=== PATIENT | male | born 1980 | race Caucasian/White ===

== ENCOUNTER 2018-07-22 09:39 | Emergency (ER) | payer SELFPAY ==
[~2018-07-22] VITALS: Ht 177.8 cm; Wt 93.0 kg
--- NOTE | 2018-07-22 09:58 | PHYS DOC ---
Past Medical History Additional Past Medical Histor: chronic back pain Drug Use: None Adult General Chief Complaint Chief Complaint: SORE THROAT HPI HPI Patient is a 38 year old male who presents with left lower neck pain that is worse with swallowing. This started approximately 48 hours ago. It has been getting worse over time. 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 Patient denies any difficulty breathing. Increased pain with swallowing. Improved pain with not swallowing.[] Review of Systems Review of Systems Constitutional: Denies fever or chills [] Eyes: Denies change in visual acuity, redness, or eye pain [] HENT: Denies nasal congestion see history of present illness[] Respiratory: Denies cough or shortness of breath [] Cardiovascular: No additional information not addressed in HPI [] GI: Denies abdominal pain, nausea, vomiting, bloody stools or diarrhea [] : Denies dysuria or hematuria [] Musculoskeletal: Denies back pain or joint pain [] Integument: Denies rash or skin lesions [] Neurologic: Denies headache, focal weakness or sensory changes [] Endocrine: Denies polyuria or polydipsia [] All other systems were reviewed and found to be within normal limits, except as documented in this note. Current Medications Current Medications Current Medications Medications (Trade) Dose Ordered Sig/Shane Start Time Stop Time Status Last Admin Dose Admin Diphenhydramine HCl (Benadryl) 50 mg 1X ONCE 07/22/18 10:15 07/22/18 10:16 DC 07/22/18 10:35 50 MG Info (CONTRAST GIVEN -- Rx MONITORING) 1 each PRN DAILY PRN 07/22/18 10:30 07/24/18 10:29 Iohexol (Omnipaque 300 Mg/ml) 70 ml 1X ONCE 07/22/18 10:30 07/22/18 10:31 DC 07/22/18 10:41 70 ML Methylprednisolone Sodium Succinate (SOLU-Medrol 125MG VIAL) 125 mg 1X ONCE 07/22/18 10:15 07/22/18 10:16 DC 07/22/18 10:34 125 MG Allergies Allergies Allergies Coded Allergies Type Severity Reaction Last Updated Verified Iodinated Contrast- Oral and IV Dye Allergy Mild itching on tongue and eyes 07/22/18 Yes Penicillins Allergy Unknown 07/22/18 Yes Physical Exam Physical Exam Constitutional: Well developed, well nourished, no acute distress, non-toxic appearance. [] HENT: Normocephalic, atraumatic, bilateral external ears normal, oropharynx moist, no oral exudates, uvula is midline, nose normal. [] Eyes: PERRLA, EOMI, conjunctiva normal, no discharge. [] Neck: Normal range of motion, tenderness in the left neck, no cervical lymphadenopathy, supple, no stridor. [] Cardiovascular:Heart rate regular rhythm, no murmur [] Lungs & Thorax: Bilateral breath sounds clear to auscultation [] Abdomen: Bowel sounds normal, soft, no tenderness, no masses, no pulsatile masses. No hepato-or splenomegaly[] Skin: Warm, dry, no erythema, no rash. [] Back: No tenderness, no CVA tenderness. [] Extremities: No tenderness, no cyanosis, no clubbing, ROM intact, no edema. [] Neurologic: Alert and oriented X 3, normal motor function, normal sensory function, no focal deficits noted. [] Psychologic: Affect normal, judgement normal, mood normal. [] Current Patient Data Vital Signs Vital Signs Date Time Temp Pulse Resp B/P (MAP) Pulse Ox O2 Delivery O2 Flow Rate FiO2 07/22/18 09:50 98.3 74 16 161/93 (115) 98 Room Air 98.3 Lab Values Laboratory Tests Test 07/22/18 10:20 White Blood Count 6.2 x10^3/uL (4.0-11.0) Red Blood Count 4.51 x10^6/uL (4.30-5.70) Hemoglobin 13.9 g/dL (13.0-17.5) Hematocrit 41.6 % (39.0-53.0) Mean Corpuscular Volume 92 fL (79-100) Mean Corpuscular Hemoglobin 31 pg (25-35) Mean Corpuscular Hemoglobin Concent 33 g/dL (31-37) Red Cell Distribution Width 13.0 % (11.5-14.5) Platelet Count 235 x10^3/uL (140-400) Neutrophils (%) (Auto) 69 % (31-73) Lymphocytes (%) (Auto) 21 % (24-48) L Monocytes (%) (Auto) 7 % (0-9) Eosinophils (%) (Auto) 2 % (0-3) Basophils (%) (Auto) 1 % (0-3) Neutrophils # (Auto) 4.3 x10^3uL (1.8-7.7) Lymphocytes # (Auto) 1.3 x10^3/uL (1.0-4.8) Monocytes # (Auto) 0.5 x10^3/uL (0.0-1.1) Eosinophils # (Auto) 0.1 x10^3/uL (0.0-0.7) Basophils # (Auto) 0.0 x10^3/uL (0.0-0.2) Sodium Level 141 mmol/L (136-145) Potassium Level 4.1 mmol/L (3.5-5.1) Chloride Level 103 mmol/L (98-107) Carbon Dioxide Level 29 mmol/L (21-32) Anion Gap 9 (6-14) Blood Urea Nitrogen 20 mg/dL (8-26) Creatinine 0.9 mg/dL (0.7-1.3) Estimated GFR (Cockcroft-Gault) 95.5 BUN/Creatinine Ratio 22 (6-20) H Glucose Level 88 mg/dL (70-99) Calcium Level 9.4 mg/dL (8.5-10.1) Total Bilirubin 0.4 mg/dL (0.2-1.0) Aspartate Amino Transferase (AST) 28 U/L (15-37) Alanine Aminotransferase (ALT) 50 U/L (16-63) Alkaline Phosphatase 88 U/L (46-116) Total Protein 8.0 g/dL (6.4-8.2) Albumin 4.4 g/dL (3.4-5.0) Albumin/Globulin Ratio 1.2 (1.0-1.7) Laboratory Tests 07/22/18 10:20 Laboratory Tests 07/22/18 10:20 EKG EKG [] Radiology/Procedures Radiology/Procedures CT of the neck with contrast, 07/22/2018: HISTORY: Left-sided pain, difficulty swallowing Multidetector CT imaging was performed following an IV bolus injection of iodinated contrast material. No neck mass is identified. Several small cervical lymph nodes are present bilaterally without definite pathologic enlargement. The laryngeal region is unremarkable. No tonsillar mass or abscess is seen. The parotid and submandibular glands are unremarkable. The left thyroid lobe is smaller than the right. No thyroid mass is seen. There is a small amount of fluid in both maxillary sinuses, right greater than left. There is also also a small amount of fluid or debris posteriorly in the right sphenoid sinus. There is minimal mucosal thickening in the ethmoid sinuses. The frontal sinuses are clear. IMPRESSION: 1. No significant neck abnormality is detected. 2. Bilateral acute maxillary sinusitis.[] Course & Med Decision Making Course & Med Decision Making Pertinent Labs and Imaging studies reviewed. (See chart for details) ED course: Patient arrived, was placed in bed, and tolerated exam well. Due to his history of allergic reaction with IV contrast he was given Benadryl and IV steroids which he tolerated well. He was transported to and from [place] with any complications. After return of laboratory and imaging findings, these were discussed with the patient who voiced understanding. All questions were answered. Patient was discharged in improved condition. Medical decision making: There is no evidence of peritonsillar abscess, neck abscess, significant electrolyte abnormality, or other significant life or limb threat at this time.[] Dragon Disclaimer Dragon Disclaimer This electronic medical record was generated, in whole or in part, using a voice recognition dictation system. Departure Departure Impression: Primary Impression: Sore throat Disposition: 01 HOME, SELF-CARE Condition: IMPROVED Patient Instructions: Sore Throat Additional Instructions: Follow-up with your primary care physician in 2 days. Drink plenty of fluids. Return to the ER if worsening discomfort or any other concerns. STACY VÁZQUEZ DO Jul 22, 2018 09:58
[2018-07-22] MEDS ORDERED: diphenhydrAMINE 50 MG/ML VIAL IVP ONE (10:15)
[2018-07-22] MEDS ORDERED: methylPREDNISolone SOD SUCC PF 125 MG/2 ML VIAL. IV ONE (10:15)
[2018-07-22] MEDS ORDERED: IOHEXOL 300 MG/ML 100ML VIAL. IV ONE (10:30)
[2018-07-22] MEDS ORDERED: CONTRAST GIVEN. MC PRN (10:30)
[2018-07-22 10:36] LABS: BASO % 1 % (0-3); EOS # 0.1 x10^3/uL (0.0-0.7); EOS % 2 % (0-3); HEMATOCRIT 41.6 % (39.0-53.0); HEMOGLOBIN 13.9 g/dL (13.0-17.5); LYMPH # 1.3 x10^3/uL (1.0-4.8); LYMPH % 21 % (24-48); MEAN CORPUSCULAR HEMOGLOBIN 31 pg (25-35); MEAN CORPUSCULAR HGB CONC 33 g/dL (31-37); MEAN CORPUSCULAR VOLUME 92 fL (79-100); MONO # 0.5 x10^3/uL (0.0-1.1); MONO % 7 % (0-9); NEUT # 4.3 x10^3uL (1.8-7.7); NEUT % 69 % (31-73); PLATELET COUNT 235 x10^3/uL (140-400); RED BLOOD COUNT 4.51 x10^6/uL (4.30-5.70); WHITE BLOOD COUNT 6.2 x10^3/uL (4.0-11.0)
[2018-07-22 10:48] LABS: CALCIUM 9.4 mg/dL (8.5-10.1); CREATININE 0.9 mg/dL (0.7-1.3); GFR 95.5; POTASSIUM 4.1 mmol/L (3.5-5.1)
[2018-07-22 10:54] LABS: ALBUMIN 4.4 g/dL (3.4-5.0); ALBUMIN/GLOBULIN RATIO 1.2 (1.0-1.7); TOTAL BILIRUBIN 0.4 mg/dL (0.2-1.0)
--- NOTE | 2018-07-22 11:26 | RAD ---
CT of the neck with contrast, 07/22/2018: HISTORY: Left-sided pain, difficulty swallowing Multidetector CT imaging was performed following an IV bolus injection of iodinated contrast material. No neck mass is identified. Several small cervical lymph nodes are present bilaterally without definite pathologic enlargement. The laryngeal region is unremarkable. No tonsillar mass or abscess is seen. The parotid and submandibular glands are unremarkable. The left thyroid lobe is smaller than the right. No thyroid mass is seen. There is a small amount of fluid in both maxillary sinuses, right greater than left. There is also also a small amount of fluid or debris posteriorly in the right sphenoid sinus. There is minimal mucosal thickening in the ethmoid sinuses. The frontal sinuses are clear. IMPRESSION: 1. No significant neck abnormality is detected. 2. Bilateral acute maxillary sinusitis. PQRS Compliance Statement: One or more of the following individualized dose reduction techniques were utilized for this examination: 1. Automated exposure control 2. Adjustment of the mA and/or kV according to patient size 3. Use of iterative reconstruction technique Electronically signed by: Jean-Pierre Han MD (07/22/2018 11:23 AM) [facility]
[2018-07-22 11:27] VITALS: BP 117/68
== END 2018-07-22 11:43 | disposition home or self-care (01) ==
LOC: ER 09:39
DX: J02.9 Acute pharyngitis, unspecified (principal); M54.2 Cervicalgia; G89.29 Other chronic pain; Z88.0 Allergy status to penicillin; Z91.041 Radiographic dye allergy status
CPT/HCPCS: 36415; 70491; 80053; 85025; 87070; 87880; 96374; 96375; 99284; J1200; J2930; Q9967